=== PATIENT | female | born 1960 | race Caucasian/White ===

== ENCOUNTER 2020-01-25 01:02 | Emergency (ER) | payer OTHER ==
[~2020-01-25] VITALS: Ht 147.3 cm; Wt 80.8 kg
[~2020-01-25 01:02] MED LIST: AMO500 PO; BIA500 PO; CETIRIZINE HYDR10 MG PO; CIPROFLOXACIN250 M2 PO; FLUTICASON0.05 MG/Ac; GLU500 PO; HYDROCHLOROTH12.5 MG PO; LAC PO; MECLIZINE25 M3; METFORMIN HCL500 MG PO; OMEPRAZOLE DR20 M1 PO; TAPAZOLE5 MG PO
[2020-01-25 01:08] VITALS: Ht 147.3 cm; Wt 80.8 kg
[2020-01-25 01:59] LABS: BASOPHIL % 0.5 % (0-2); PLATELET COUNT 271 x10^3mcL (130-400); RED CELL DISTRIBUTION WIDTH 14.8 % (11.5-14.5)
[2020-01-25 02:04] LABS: CARBON DIOXIDE 29.7 mmol/L (21-32); CHLORIDE SERUM 106 mmol/L (98-107); CREATININE SERUM 0.7 mg/dL (0.6-1.0); GFR1 > 60 mL/min; GLUCOSE SERUM 131 mg/dL (74-106); POTASSIUM SERUM 3.8 mmol/L (3.5-5.1); SODIUM SERUM 143 mmol/L (136-145)
[2020-01-25 02:09] LABS: ALBUMIN 3.5 g/dL (3.4-5.0); ALKALINE PHOSPHATASE 83 U/L (46-116); ALT/SGPT 28 U/L (14-59); AMYLASE 56 U/L (25-115); AST/SGOT 22 U/L (15-37); BILIRUBIN TOTAL 0.43 mg/dL (0.20-1.00); LIPASE 161 IU/L (73-393)
[2020-01-25 02:48] VITALS: BP 129/73
== END 2020-01-25 02:48 | disposition home or self-care (01) ==
LOC: ED 01:02
PROVIDERS: Emergency Medicine
DX: R10.30 Lower abdominal pain, unspecified (principal); I10 Essential (primary) hypertension; E11.9 Type 2 diabetes mellitus without complications; E78.00 Pure hypercholesterolemia, unspecified
CPT/HCPCS: 36415; J1885; Q0092